=== PATIENT | female | born 1960 | race Caucasian/White ===

== ENCOUNTER 2016-05-28 19:34 | Emergency (ER) | payer MEDICARE, OTHER ==
[~2016-05-28 19:34] MED LIST: ALBUTEROL17 GM INH; ALPRAZOLAM; AMBIEN; AMBIEN PO; AMBIEN10 MG PO; AMOXICILLIN875 MG PO; ASPIRIN81 M1 PO; ATIVAN2 MG PO; AUGMENTIN PO; BUSPAR15 M1 PO; BYSTOLIC10 MG; BYSTOLIC10 MG PO; CLOPIDOGREL BIS75 MG PO; CRESTOR; CYMBALTA PO; DIFLUCAN PO; DOXYCYCLINE PO; EFFEXOR PO; ESTRACE PO; FISH OIL 1,21 CAP.EC PO; FISH OIL300 MG PO; FLEXERIL PO; FLEXERIL10 MG PO; GUAIFEN-P-EPHE480 ML PO; HYDROCODON-ACE1 EAC5 PO; IBUPROFEN; IMDUR-ER30 MG PO; KEFLEX PO; LASIX; LASIX PO; LEXAPRO; LEXAPRO PO; LEXAPRO5 MG PO; LIPITOR; LIPITOR20 MG PO; LISINOPRIL10 MG PO; LORTAB 10/500 T1 TAB PO; LORTAB 101 TAB 10/5 DOB; LORTAB 5/500 TA1 TA1 PO; MEDROL4 MG/DOSE- PO; METOPROLOL SUCC25 MG PO; MOBIC PO; MOBIC15 MG PO; MONISTAT 11 EA; MONISTAT 11 EA PV; MOTRIN100 MG PO; MUCINEX DM1 TAB.SR .; NEURONTIN PO; NEURONTIN300 MG PO; NORCO 10-325 TA1 TAB PO; PEPTO-BISM525 MG/15 PO; PHENERGAN; PHENERGAN PO; PLAVIX; PLAVIX PO; PREDNISONE PO; PREMARIN; PROTONIX PO; PROTONIX20 MG PO; PROTONIX40 MG/BLIS PO; ROSUVASTATIN CA20 MG PO; SOMA PO; UNKNOWN ANTIBIOTIC; VICODIN 5/500 T1 TAB PO; XANAX0.5 M1 PO; XANAX1 MG PO; [UNRECOGNIZED DRUG - OTHER]; [UNRECOGNIZED DRUG - OTHER]; [UNRECOGNIZED DRUG - REMARK]
== END 2016-05-28 19:55 | disposition home or self-care (01) ==
LOC: CFTX 19:34
DX: H92.01 Otalgia, right ear (principal); I11.0 Hypertensive heart disease with heart failure; I50.9 Heart failure, unspecified
CPT/HCPCS: 99282